=== PATIENT | male | born 1970 | race American Indian/Alaskan Native ===

== ENCOUNTER 2018-05-28 17:47 | Emergency (ER) | payer BC ==
--- NOTE | 2018-05-28 17:59 | Emergency Department Report ---
Blank Doc - Documentation Documentation: This is a 47-year-old male that presents with right bicep and tricep pain. De nies any injuries. This initial assessment/diagnostic orders/clinical plan/treatment(s) is/are subject to change based on patient's health status, clinical progression and re- assessment by fellow clinical providers in the ED. Further treatment and workup at subsequent clinical providers discretion. Patient/guardians urged not to elope from the ED as their condition may be serious if not clinically assessed and managed. Initial orders include: 1- Patient sent to [facility] for further evaluation and treatment 2- xray
--- NOTE | 2018-05-28 19:26 | XRay Report ---
PROCEDURE: XR HUMERUS 2+V RT TECHNIQUE: Right humerus 2 views HISTORY: right humeurs pain COMPARISONS: FINDINGS: No fracture or dislocation identified. Joint spaces are within normal limits. AC joint demonstrates n o evidence for widening. IMPRESSION: Negative no acute abnormality seen. This document is electronically signed by Roscoe Pierre MD., May 28 2018 07:23:51 PM ET
--- NOTE | 2018-05-28 22:17 | Emergency Department Report ---
Upper Extremity - HPI Chief Complaint: Extremity Injury, Upper Stated Complaint: RT SHOULDER/ARM TINGLING Time Seen by Provider: 05/28/18 17:57 Other History: pt is a 47 yo male who presents to the ED with c/o right biceps and triceps pain that began 1 month ago. He states on occasion he gets tingling in the right arm but has none currently. The patient states he has a hx of a "pinched nerve" in his neck but does not know what level. He denies any neck pain, numbness, or weakness. ED Review of Systems ROS: Stated complaint: RT SHOULDER/ARM TINGLING Other details as noted in HPI Comment: All other systems reviewed and negative ED Past Medical Hx - Surgical History Additional Surgical History: cyst removal - Social History Smoking Status: Former Smoker Substance Use Type: Alcohol, Marijuana - Medications Home Medications: Home Medications Medication Instructions Recorded Confirmed Last Taken Type Cyclobenzaprine [Flexeril] 10 mg PO QHS PRN #7 tablet 05/28/18 Unknown Rx Ibuprofen 800 mg PO Q6HR PRN #20 tablet 05/28/18 Unknown Rx Upper Extremity Exam - Exam General: Vital signs noted. No distress. Alert and acting appropriately. neuro: cranial nerve II-XII intact, normal heel to chen, normal finger to nose, 5/5 strength in the BUE/BLE, normal sensation, no neuro deficit Head and Torso: No Neck Tenderness, No Chest/Lungs Abnormality Shoulder Exam: Yes Normal Range of Motion in Shoulder, No Shoulder Tenderness, No Clavicle Tenderness, No Shoulder Deformity, No AC Joint Tenderness Arm Exam: No Arm/Humerus Tenderness (pt has no TTP of the RUE, FROM of the LUE/RUE), No Arm Deformity Elbow: Yes Normal Range of Motion in Elbow, No Elbow Tenderness, No Elbow Deformity Forearm: No Forearm Tenderness, No Forearm Deformity, No Pain with Pronation, No Pain with Supination Wrist: Yes Normal ROM in Wrist, No Wrist Tenderness, No Wrist Deformity, No Snuffbox Tenderness, No Pain with Axial Thumb Compression Hand: Yes Normal ROM in Digit(s), No Hand Tenderness, No Hand Deformity, No Digit Tenderness, No Digit(s) Deformity, No Tendon Dysfunction CMS Exam: Yes Normal Distal Pulses, Yes Normal Capillary Refill, Yes Normal Distal Sensation, No Broken Skin ED Course Vital Signs 05/28/18 17:58 Temperature 98.3 F Pulse Rate 104 H Respiratory 18 Rate Blood Pressure 159/100 O2 Sat by Pulse 97 Oximetry ED Medical Decision Making - Lab Data Vital Signs 05/28/18 05/28/18 17:58 22:59 Temperature 98.3 F Pulse Rate 104 H 67 Respiratory 18 16 Rate Blood Pressure 159/100 Blood Pressure 138/76 [Left] O2 Sat by Pulse 97 100 Oximetry - Radiology Data Radiology results: report reviewed PROCEDURE: XR HUMERUS 2+V RT TECHNIQUE: Right humerus 2 views HISTORY: right humeurs pain COMPARISONS: FINDINGS: No fracture or dislocation identified. Joint spaces are within normal limits. AC joint demonstrates no evidence for widening. IMPRESSION: Negative no acute abnormality seen. This document is electronically signed by Roscoe Pierre MD., May 28 2018 07:23:51 PM ET - Medical Decision Making pt is a 47 yo male who presents to the ED with c/o right biceps and triceps pain that began 1 month ago. He states on occasion he gets tingling in the right arm but has none currently. The patient states he has a hx of a "pinched nerve" in his neck but does not know what level. He denies any neck pain, numbness, or weakness. VSS on recheck. On examination pt has no C-spine tenderness, no RUE tenderness, FROM of the RUE, no neuro deficit, neurovascularly intact. Will give pt steroid injection will in the ED. Will send pt home with anti-inflammatory and short course of muscle relaxer. Only use the muscle relaxer at night as needed and do not drive or operate heavy machinery. Will have pt follow up with PCP and orthopedic in the next 2-3 days. Return to the emergency room for any new or worsening symptoms. - Differential Diagnosis radiculopathy, fx, dislocation Critical care attestation.: If time is entered above; I have spent that time in minutes in the direct care of this critically ill patient, excluding procedure time. ED Disposition Clinical Impression: Radiculopathy Qualifiers: Spinal region: cervical Qualified Code(s): M54.12 - Radiculopathy, cervical region Disposition: - TO HOME OR SELFCARE Is pt being admited?: No Does the pt Need Aspirin: No Condition: Stable Instructions: Cervical Radiculopathy (ED) Additional Instructions: Please follow up with your primary care doctor and orthopedic in the next 2-3 days. Take medication as prescribed.Only use the muscle relaxer at night as needed and do not drive or operate heavy machinery. Return to the emergency room for any new or worsening symptoms. Use heat, ice, elevation, epsom salt bath. Prescriptions: Cyclobenzaprine [Flexeril] 10 mg PO QHS PRN #7 tablet PRN Reason: Muscle Spasm Ibuprofen 800 mg PO Q6HR PRN #20 tablet PRN Reason: Pain, Moderate (4-6) Referrals: FRANCHESCA ROACH MD [Referring] - 2-3 Days TACHO DELGADO MD [Staff Physician] - 2-3 Days Time of Disposition: 22:38 Print Language: ISRAELI
[2018-05-28] MEDS ORDERED: DECADRON IM ONE (22:27)
[2018-05-28 23:00] VITALS: BP 138/76
== END 2018-05-28 22:59 | disposition home or self-care (01) ==
LOC: ED 17:47
DX: M54.12 Radiculopathy, cervical region (principal); F12.10 Cannabis abuse, uncomplicated; Z87.891 Personal history of nicotine dependence
CPT/HCPCS: 73060; 96372; 99283; J1100

== ENCOUNTER 2018-09-01 12:04 | Emergency (ER) | payer BC ==
[2018-09-01 12:11] VITALS: BP 156/108
--- NOTE | 2018-09-01 12:14 | Emergency Department Report ---
Blank Doc - Documentation Documentation: 48 y o male presents to Ed right shoulder pain radiating to biceps states its spreading to other side. he has hx of pinched nerve in the past denies trauma or injury, chest pain elevated BP but no hx of HTN medicate to reduce BP- pain control [facility]
[2018-09-01] MEDS ORDERED: TORADOL IM ONE (12:16)
[2018-09-01] MEDS ORDERED: NORVASC PO ONE (12:16)
--- NOTE | 2018-09-01 12:53 | Emergency Department Report ---
ED Neck Pain HPI Chief Complaint: Neck Pain/Injury Stated Complaint: TIGHTNESS IN NECK /ARM Time Seen by Provider: 09/01/18 12:10 Duration: 3 Days Neck Pain Location: Posterior Neck Severity: moderate Mechanism: Unsure Symptoms: Yes Pain with Movement, Yes Radiation to Left Upper Ext, Yes Radiation to Right Upper Ext, Yes Previous History, No Numbness, No Weakness Other History: Patient has a history of cervical radiculopathy in the past and is having exacerbation for the last several days. He denies any weakness. Patient states that when he turns his head certain way to the right or left he occasionally gets sharp pain running down his arms. ED Review of Systems ROS: Stated complaint: TIGHTNESS IN NECK /ARM Other details as noted in HPI Comment: All other systems reviewed and negative ED Past Medical Hx - Past Medical History Previous Medical History?: Yes Additional medical history: bursitis - Surgical History Past Surgical History?: Yes Additional Surgical History: cyst removal - Social History Smoking Status: Current Every Day Smoker Substance Use Type: Alcohol, Marijuana - Medications Home Medications: Home Medications Medication Instructions Recorded Confirmed Last Taken Type Cyclobenzaprine [Flexeril] 10 mg PO QHS PRN #7 tablet 05/28/18 Unknown Rx Ibuprofen [Ibuprofen 800] 800 mg PO Q6HR PRN #20 tablet 05/28/18 Unknown Rx methOCARBAMOL [Robaxin TAB] 500 mg PO Q6H PRN #14 tablet 09/01/18 Unknown Rx predniSONE [Deltasone] 20 mg PO QDAY #5 tab 09/01/18 Unknown Rx traMADol [Ultram] 50 mg PO Q6HR PRN #12 tablet 09/01/18 Unknown Rx Neck Pain Exam - Exam General: Vital signs noted. No distress. Alert and acting appropriately. HEENT: No Facial Pain, No Scalp Tenderness, No Contusion, No Abrasion, No Laceration Neck Pain: Yes Midline Tenderness, Yes Pain with Rotation Right, Yes Pain with Rotation Left (states he fills like it gets caught), No Right Paraspinal Tenderness, No Left Paraspinal Tenderness, No Right Trapezius Tenderness, No Left Trapezius Tenderness, No Pain with Extension, No Pain with Flexion, No pain with R Lateral Flexion, No Pain with L Lateral Flexion Chest: Yes Clear Lung Sounds, No Pain with Respirations Heart: Yes Regular, No Murmur Back: No Thoracic Tenderness, No Lumbar Tenderness Neuro: No Numbness, No Weakness, No Normal Reflexes, No Radicular Deficits ED Course Vital Signs 09/01/18 12:09 Temperature 98.8 F Pulse Rate 74 Respiratory 18 Rate Blood Pressure 156/108 O2 Sat by Pulse 100 Oximetry ED Medical Decision Making - Medical Decision Making Patient states he seen a neurologist in the past for these symptoms. Patient will need to see a orthopedic physician. Patient given medications for symptomatically relief be discharged home. Critical care attestation.: If time is entered above; I have spent that time in minutes in the direct care of this critically ill patient, excluding procedure time. ED Disposition Clinical Impression: Cervical radiculopathy Disposition: DC-01 TO HOME OR SELFCARE Is pt being admited?: No Does the pt Need Aspirin: No Condition: Stable Instructions: Cervical Radiculopathy (ED) Referrals: TACHO DELGADO MD [Staff Physician] - 3-5 Days Time of Disposition: 12:53
== END 2018-09-01 13:05 | disposition home or self-care (01) ==
LOC: ED 12:04
DX: M54.12 Radiculopathy, cervical region (principal); M79.601 Pain in right arm; M79.602 Pain in left arm; F17.200 Nicotine dependence, unspecified, uncomplicated; F12.10 Cannabis abuse, uncomplicated; Z87.2 Personal history of diseases of the skin and subcutaneous tissue; Z87.39 Personal history of other diseases of the musculoskeletal system and connective tissue; Z79.899 Other long term (current) drug therapy
CPT/HCPCS: 96372; 99282; J1885